=== PATIENT | female | born 1975 | race Caucasian/White ===

== ENCOUNTER 2020-09-05 03:14 | Emergency (ER) | payer SELFPAY ==
[~2020-09-05] VITALS: Ht 154.9 cm; Wt 91.0 kg
[2020-09-05 03:42] VITALS: BP 122/72
[2020-09-05] MEDS ORDERED: IBUPROFEN 600MG TABLET PO ONE (04:45)
[2020-09-05] MEDS ORDERED: IBUP-2029 MT (05:16)
== END 2020-09-05 05:42 | disposition home or self-care (01) ==
LOC: ER 03:14
DX: M25.511 Pain in right shoulder (principal); W11.XXXA Fall on and from ladder, initial encounter; Y93.89 Activity, other specified; Y92.9 Unspecified place or not applicable
CPT/HCPCS: 73030; 81025; 99283; Z7610; A4565